=== PATIENT | male | born 1960 | race Caucasian/White ===

== ENCOUNTER 2016-12-16 03:23 | Emergency (ER) | payer MEDICARE, MEDICAID ==
[2016-12-16] MEDS ORDERED: FENTANYL CITRATE INJ/PF 100 MCG/2 ML AMPUL ONE ×2 (03:33→10:38)
[2016-12-16] MEDS ORDERED: FENTANYL CITRATE INJ/PF 100 MCG/2 ML AMPUL IV ONE ×3 (03:44→10:35)
[2016-12-16] MEDS ORDERED: NORMAL SALINE 1000 ML 1,000 ML IV ONE ×2 (03:45→05:39)
[2016-12-16] MEDS ORDERED: SILVER SULFADIAZINE 1% CREAM 400 GM TP PRN (03:46)
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
[2016-12-16] MEDS ORDERED: HYDROCODONE/ACETAMINOPHEN 5-325 MG 6 TAB/DSPK PO PRN (03:52)
[2016-12-16] MEDS ORDERED: HYDROMORPHONE HCL INJ/PF 2 MG/ML AMPULE IV ONE (05:43)
[2016-12-16] MEDS ORDERED: OXYCODONE-ACETAMINOPHEN 5-325 MG TABLET PO ONE (08:47)
--- NOTE | 2016-12-16 10:38 | ER Document Report ---
Doctor's Note Notes: 12/16/16 10:36 Patient seen and evaluated at the bedside at 0 730 request from nurse for additional pain medication patient is awake and alert vital signs are stable regular rhythm and additional fentanyl and Percocet. He said it made him a little nauseated reassessed him at 1035 helicopter is arriving stable vital signs mild amount of discomfort wrote him for an additional 100 mics of fentanyl. At this point anxiety and palate form he is stable for transfer
[2016-12-16 11:16] VITALS: BP 142/101
== END 2016-12-16 11:16 | disposition short-term general hospital (02) ==
LOC: ER 03:23
DX: T20.25XA Burn of second degree of scalp [any part], initial encounter (principal); T21.04XA Burn of unspecified degree of lower back, initial encounter; T22.012A Burn of unspecified degree of left forearm, initial encounter; T23.062A Burn of unspecified degree of back of left hand, initial encounter; X08.8XXA Exposure to other specified smoke, fire and flames, initial encounter; Y92.009 Unspecified place in unspecified non-institutional (private) residence as the place of occurrence of the external cause
CPT/HCPCS: 96376; 99285; 96374; 96375; J3010; A9270; J1170; J3490

== ENCOUNTER 2017-01-04 20:50 | Emergency (ER) | payer MEDICARE, MEDICAID ==
[2017-01-04] MEDS ORDERED: CEPHALEXIN 500 MG CAPSULE PO ONE (21:31)
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
[2017-01-04 21:49] VITALS: BP 161/98
== END 2017-01-04 21:55 | disposition home or self-care (01) ==
LOC: ER 20:50
DX: T22.00XD Burn of unspecified degree of shoulder and upper limb, except wrist and hand, unspecified site, subsequent encounter (principal); T20.00XD Burn of unspecified degree of head, face, and neck, unspecified site, subsequent encounter; L98.9 Disorder of the skin and subcutaneous tissue, unspecified; X08.8XXD Exposure to other specified smoke, fire and flames, subsequent encounter
CPT/HCPCS: 99283; A9270

== ENCOUNTER 2017-02-14 06:54 | Emergency (ER) | payer MEDICARE, MEDICAID ==
[2017-02-14 07:25] VITALS: BP 152/93
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
== END 2017-02-14 07:51 | disposition home or self-care (01) ==
LOC: ER 06:54
DX: L02.91 Cutaneous abscess, unspecified (principal); E11.9 Type 2 diabetes mellitus without complications; I10 Essential (primary) hypertension; G89.29 Other chronic pain; F17.200 Nicotine dependence, unspecified, uncomplicated; Z85.828 Personal history of other malignant neoplasm of skin; Z79.891 Long term (current) use of opiate analgesic
CPT/HCPCS: 99282

== ENCOUNTER 2017-04-28 11:36 | Inpatient (IN) | payer MEDICARE, MEDICAID ==
[2017-04-28] MEDS ORDERED: NORMAL SALINE 1000 ML 1,000 ML IV PRN (12:30)
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
--- NOTE | 2017-04-28 13:28 | RADIOLOGY REPORT (SQ) ---
EXAM DESCRIPTION: KNEE RIGHT 4 VIEWS COMPLETED DATE/TIME: 04/28/2017 1:08 pm REASON FOR STUDY: cellulitis going down leg COMPARISON: None. NUMBER OF VIEWS: Four views. TECHNIQUE: AP, lateral, and both oblique radiographic images acquired of the right knee. LIMITATIONS: None. FINDINGS: MINERALIZATION: Normal. BONES: No acute fracture or dislocation. No worrisome bone lesions. JOINT: No effusion. Mild patellofemoral, medial, and lateral compartment joint space narrowing. SOFT TISSUES: No soft tissue swelling. No radio-opaque foreign body. OTHER: No other significant finding. IMPRESSION: No acute fracture or malalignment. TECHNICAL DOCUMENTATION: JOB ID: [id number] [employer]- All Rights Reserved
[2017-04-28] MEDS ORDERED: CLINDAMYCIN 600 MG/D5W RTU 600 MG/50 ML RTUPB IV ONE (13:31)
[2017-04-28 14:21] LABS: ANION GAP 11 (5-19); BLOOD UREA NITROGEN 41 mg/dL (7-20); CALCIUM 9.5 mg/dL (8.4-10.2); CARBON DIOXIDE 27 mmol/L (22-30); CHLORIDE 102 mmol/L (98-107); CREATININE RESULT 0.97 mg/dL (0.52-1.25); GLUCOSE 291 mg/dL (75-110); POTASSIUM 4.9 mmol/L (3.6-5.0); SODIUM 140.1 mmol/L (137-145)
[2017-04-28 14:22] LABS: HEMOGLOBIN 15.3 g/dL (13.5-17.0); HGB HCT DIFFERENCE 2.9; MEAN CORPUSCULAR HEMOGLOBIN 29.7 pg (27.0-33.4); MEAN CORPUSCULAR HGB CONC 35.6 g/dL (32.0-36.0); MEAN CORPUSCULAR VOLUME 84 fl (80-97); RED BLOOD COUNT 5.16 10^6/uL (4.35-5.55); WHITE BLOOD COUNT 10.8 10^3/uL (4.0-10.5)
[2017-04-28] MEDS ORDERED: DEXTROSE 40% GEL 15 GM TUBE PO PRN ×5 (14:26→17:28)
[2017-04-28] MEDS ORDERED: DEXTROSE 50%-WATER 25 GM/50 ML DISP.SYRIN IV PRN ×4 (14:26→14:29)
[2017-04-28] MEDS ORDERED: GLUCAGON,HUMAN RECOMB 1 MG INJ SUBCUT PRN (14:26)
[2017-04-28] MEDS ORDERED: INSULIN REG, HUMAN 100 UNIT/ML 3 ML VIAL (PYX) SUBCUT PRN (14:29)
[2017-04-28] MEDS ORDERED: GLUCAGON,HUMAN RECOMB 1 MG INJ IM PRN ×2 (14:29→17:28)
[2017-04-28 14:40] LABS: BASOPHILS % (MANUAL) 2 % (0-2); EOSINOPHILS % (MANUAL) 4 % (0-6); LYMPHOCYTES % (MANUAL) 18 % (13-45); TOTAL CELLS COUNTED 100
[2017-04-28 14:41] LABS: RBC MORPHOLOGY COMMENT NORMO-CYTIC/CHROMIC
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
[2017-04-28] MEDS ORDERED: DEXTROSE 40% GEL 15 GM TUBE X 2 PO PRN (17:28)
[2017-04-28] MEDS ORDERED: DEXTROSE 50%-WATER SYRINGE 25 GM/50 ML DOSE IV PRN (17:28)
[2017-04-28] MEDS ORDERED: DEXTROSE 50%-WATER SYRINGE 12.5 GM/25 ML DOSE IV PRN (17:28)
[2017-04-28] MEDS: INSULIN REG, HUMAN 100 UNIT/ML 3 ML VIAL (PYX) SUBCUT PRN (17:36)
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
[2017-04-28 20:32] LABS: URINE BARBITURATES SCREEN NEGATIVE; URINE METHADONE SCREEN NEGATIVE; URINE OPIATES LOW NEGATIVE; URINE PHENCYCLIDINE SCREEN NEGATIVE
[2017-04-28] MEDS: FAMOTIDINE 20 MG TABLET PO SCH (21:29)
[2017-04-28] MEDS: GABAPENTIN 400 MG CAPSULE PO SCH (21:29)
[2017-04-28] MEDS: CLINDAMYCIN 600 MG/D5W RTU 600 MG/50 ML RTUPB IV SCH (21:30)
[2017-04-28] MEDS: HYDROCODONE/ACETAMINOPHEN 10-325 MG TABLET PO PRN (21:39)
[2017-04-29] MEDS: GABAPENTIN 400 MG CAPSULE PO SCH ×3 (05:37→22:22)
[2017-04-29] MEDS: CLINDAMYCIN 600 MG/D5W RTU 600 MG/50 ML RTUPB IV SCH ×3 (05:38→22:22)
[2017-04-29 05:52] LABS: ABSOLUTE BASOPHILS # (AUTO) 0.1 10^3/uL (0.0-0.2); ABSOLUTE EOSINOPHILS # (AUTO) 0.4 10^3/uL (0.0-0.6); ABSOLUTE LYMPHOCYTES (AUTO) 2.1 10^3/uL (0.5-4.7); ABSOLUTE MONOCYTES (AUTO) 0.4 10^3/uL (0.1-1.4); ABSOLUTE NEUT (AUTO) 2.6 10^3/uL (1.7-8.2); BASOPHILS % (AUTO) 1.1 % (0-2); EOSINOPHILS % (AUTO) 6.8 % (0-6); HEMATOCRIT 38.5 % (37.9-51.0); HEMOGLOBIN 13.5 g/dL (13.5-17.0); LYMPHOCYTES % (AUTO) 37.2 % (13-45); MEAN CORPUSCULAR HEMOGLOBIN 29.3 pg (27.0-33.4); MEAN CORPUSCULAR HGB CONC 35.2 g/dL (32.0-36.0); MEAN CORPUSCULAR VOLUME 83 fl (80-97); MONOCYTES % (AUTO) 7.9 % (3-13); RED BLOOD COUNT 4.63 10^6/uL (4.35-5.55); RED CELL DISTRIBUTION WIDTH 14.2 % (11.5-14.0); WHITE BLOOD COUNT 5.6 10^3/uL (4.0-10.5)
[2017-04-29 06:21] LABS: ANION GAP 9 (5-19); BLOOD UREA NITROGEN 26 mg/dL (7-20); CALCIUM 8.7 mg/dL (8.4-10.2); CARBON DIOXIDE 25 mmol/L (22-30); CHLORIDE 103 mmol/L (98-107); CREATININE RESULT 0.78 mg/dL (0.52-1.25); GLUCOSE 260 mg/dL (75-110); POTASSIUM 4.7 mmol/L (3.6-5.0); SODIUM 136.7 mmol/L (137-145)
[2017-04-29] MEDS: INSULIN REG, HUMAN 100 UNIT/ML 3 ML VIAL (PYX) SUBCUT PRN ×2 (08:11→17:00)
[2017-04-29] MEDS ORDERED: NORMAL SALINE 1000 ML 1,000 ML IV PRN (08:58)
[2017-04-29] MEDS: FAMOTIDINE 20 MG TABLET PO SCH ×2 (09:46→22:23)
[2017-04-29] MEDS ORDERED: GLIPIZIDE 5 MG TABLET PO ONE (13:00)
--- NOTE | 2017-04-29 15:35 | PDOC PROGRESS REPORT ---
Subjective Progress Note for:: 04/29/17 Subjective:: Patient was admitted with right knee cellulitis which is improved significantly. He did have a tear in his scan makes me think that he had an injury /insult to that area. Of course patient denies. He has not been very honest regarding his compliance with medications. Also he tested positive for cocaine. States about 3 weeks ago took some cocaine put in water and swallowed. Physical Exam Vital Signs: Temp Pulse Resp BP Pulse Ox 97.3 F 71 17 144/89 H 100 04/29/17 11:49 04/29/17 11:49 04/29/17 11:49 04/29/17 11:49 04/29/17 11:49 Intake & Output 04/28/17 04/29/17 04/30/17 07:59 06:59 06:59 Intake Total 1060 Balance 1060 Weight General appearance: PRESENT: no acute distress, well-developed, well-nourished Head exam: PRESENT: atraumatic, normocephalic Eye exam: PRESENT: conjunctiva pink, EOMI, PERRLA. ABSENT: scleral icterus Ear exam: PRESENT: normal external ear exam Mouth exam: PRESENT: moist, tongue midline Neck exam: ABSENT: carotid bruit, JVD, lymphadenopathy, thyromegaly Respiratory exam: PRESENT: clear to auscultation sb. ABSENT: rales, rhonchi, wheezes Cardiovascular exam: PRESENT: RRR. ABSENT: diastolic murmur, rubs, systolic murmur Pulses: PRESENT: normal dorsalis pedis pul Vascular exam: PRESENT: normal capillary refill GI/Abdominal exam: PRESENT: normal bowel sounds, soft. ABSENT: distended, guarding, mass, organolmegaly, rebound, tenderness Rectal exam: PRESENT: deferred Extremities exam: PRESENT: full ROM. ABSENT: calf tenderness, clubbing, pedal edema Neurological exam: PRESENT: alert, awake, oriented to person, oriented to place , oriented to time, oriented to situation, CN II-XII grossly intact. ABSENT: motor sensory deficit Psychiatric exam: PRESENT: appropriate affect, normal mood. ABSENT: homicidal ideation, suicidal ideation Skin exam: PRESENT: dry, intact, warm. ABSENT: cyanosis, rash Results Laboratory Results: 04/29/17 04:43 04/29/17 04:43 04/29/17 04/29/17 04:43 04:43 WBC 5.6 RBC 4.63 Hgb 13.5 Hct 38.5 MCV 83 MCH 29.3 MCHC 35.2 RDW 14.2 H Plt Count 156 Seg Neutrophils % 47.0 Lymphocytes % 37.2 Monocytes % 7.9 Eosinophils % 6.8 H Basophils % 1.1 Absolute Neutrophils 2.6 Absolute Lymphocytes 2.1 Absolute Monocytes 0.4 Absolute Eosinophils 0.4 Absolute Basophils 0.1 Sodium 136.7 L Potassium 4.7 Chloride 103 Carbon Dioxide 25 Anion Gap 9 BUN 26 H Creatinine 0.78 Est GFR ( Amer) > 60 Est GFR (Non-Af Amer) > 60 Glucose 260 H Calcium 8.7 Impressions: Knee X-Ray 04/28/17 12:29 IMPRESSION: No acute fracture or malalignment. Assessment & Plan - Diagnosis (1) Cellulitis of right knee Is this a current diagnosis for this admission?: Yes Plan: Patient will be admitted for IV antibiotics. Will start clindamycin per Dr. Coleman's recommendation. Consult him for possible I&D of right knee. Blood cultures were obtained in the ER continue to monitor and follow. Suspect patient will not need surgery. Continue with IV antibiotics for now. (2) Benign essential HTN Is this a current diagnosis for this admission?: Yes Plan: Monitor patient's blood pressure. Will continue lisinopril and HCTZ. Will also continue his amlodipine. Per pharmacy patient has not been compliant in getting prescription filled for some time but he told me he been taking it every day. (3) Diabetes 1.5, managed as type 2 Is this a current diagnosis for this admission?: Yes Plan: We will hold metformin at this time. We will start Accu-Cheks before meals at bedtime with sliding scale insulin continue to monitor blood sugars. Check Hemoglobin A1c was 11.1. So I doubt patient was taking any of his oral hypoglycemics. Continue sliding scale coverage here. I have added glipizide and restarted his Metformin. (4) Illicit drug use Is this a current diagnosis for this admission?: Yes Plan: Patient test positive for cocaine. Patient denies using it daily. States he uses it for his pain control. I have encourage cessation and abstinence of illicit drug use.
[2017-04-29] MEDS: HYDROCODONE/ACETAMINOPHEN 10-325 MG TABLET PO PRN ×2 (16:15→22:23)
[2017-04-29] MEDS: GLIPIZIDE 5 MG TABLET PO SCH (16:18)
[2017-04-29] MEDS ORDERED: AMLODIPINE BESYLATE 10 MG TABLET PO ONE (16:30)
[2017-04-29] MEDS: METFORMIN HCL 850 MG TABLET PO SCH (17:00)
--- NOTE | 2017-04-29 20:07 | PDOC PROGRESS REPORT ---
Subjective Progress Note for:: 04/29/17 Subjective:: #1 is less pains along the right knee Physical Exam Vital Signs: Temp Pulse Resp BP Pulse Ox 97.4 F 75 18 151/97 H 98 04/29/17 19:59 04/29/17 19:59 04/29/17 19:59 04/29/17 19:59 04/29/17 19:59 Intake & Output 04/28/17 04/29/17 04/30/17 07:59 06:59 06:59 Intake Total 1160 Balance 1160 Weight Exam: #1 there is erythema along the right lower leg has subsided. There is just a small area of redness and mild swelling on the mid right knee on top of the patella I do not see any accumulation of pus at this time and therefore can hold off with i&d at this time. Results Laboratory Results: 04/29/17 04:43 04/29/17 04:43 04/29/17 04/29/17 04:43 04:43 WBC 5.6 RBC 4.63 Hgb 13.5 Hct 38.5 MCV 83 MCH 29.3 MCHC 35.2 RDW 14.2 H Plt Count 156 Seg Neutrophils % 47.0 Lymphocytes % 37.2 Monocytes % 7.9 Eosinophils % 6.8 H Basophils % 1.1 Absolute Neutrophils 2.6 Absolute Lymphocytes 2.1 Absolute Monocytes 0.4 Absolute Eosinophils 0.4 Absolute Basophils 0.1 Sodium 136.7 L Potassium 4.7 Chloride 103 Carbon Dioxide 25 Anion Gap 9 BUN 26 H Creatinine 0.78 Est GFR ( Amer) > 60 Est GFR (Non-Af Amer) > 60 Glucose 260 H Calcium 8.7 Impressions: Knee X-Ray 04/28/17 12:29 IMPRESSION: No acute fracture or malalignment. Assessment & Plan - Time Time Spent with patient: 15-24 minutes - Plan Summary Plan Summary: #1 can hold off with the incision and drainage of right knee abscess since there is no apparent abscess collection at this time. 2. Continue with IV antibiotic therapy. 3. He can be followed up in the surgical clinic in about a week to make sure that thE CELLULITIS continues to improve.
[2017-04-30 04:41] LABS: ABSOLUTE BASOPHILS # (AUTO) 0.1 10^3/uL (0.0-0.2); ABSOLUTE EOSINOPHILS # (AUTO) 0.4 10^3/uL (0.0-0.6); ABSOLUTE LYMPHOCYTES (AUTO) 2.3 10^3/uL (0.5-4.7); ABSOLUTE MONOCYTES (AUTO) 0.5 10^3/uL (0.1-1.4); ABSOLUTE NEUT (AUTO) 2.4 10^3/uL (1.7-8.2); BASOPHILS % (AUTO) 1.2 % (0-2); EOSINOPHILS % (AUTO) 6.7 % (0-6); HEMATOCRIT 40.5 % (37.9-51.0); HEMOGLOBIN 14.7 g/dL (13.5-17.0); HGB HCT DIFFERENCE 3.6; LYMPHOCYTES % (AUTO) 40.7 % (13-45); MEAN CORPUSCULAR HEMOGLOBIN 29.8 pg (27.0-33.4); MEAN CORPUSCULAR HGB CONC 36.4 g/dL (32.0-36.0); MEAN CORPUSCULAR VOLUME 82 fl (80-97); MONOCYTES % (AUTO) 8.6 % (3-13); RED BLOOD COUNT 4.95 10^6/uL (4.35-5.55); RED CELL DISTRIBUTION WIDTH 14.1 % (11.5-14.0); SEGMENTED NEUTROPHILS % (AUTO) 42.8 % (42-78); WHITE BLOOD COUNT 5.6 10^3/uL (4.0-10.5)
[2017-04-30 04:59] LABS: ANION GAP 11 (5-19); BLOOD UREA NITROGEN 19 mg/dL (7-20); CARBON DIOXIDE 22 mmol/L (22-30); CHLORIDE 104 mmol/L (98-107); CREATININE RESULT 0.72 mg/dL (0.52-1.25); GLUCOSE 191 mg/dL (75-110); POTASSIUM 4.8 mmol/L (3.6-5.0); SODIUM 136.6 mmol/L (137-145)
[2017-04-30] MEDS: CLINDAMYCIN 600 MG/D5W RTU 600 MG/50 ML RTUPB IV SCH ×3 (06:30→21:20)
[2017-04-30] MEDS: HYDROCODONE/ACETAMINOPHEN 10-325 MG TABLET PO PRN ×3 (06:30→21:20)
[2017-04-30] MEDS: GABAPENTIN 400 MG CAPSULE PO SCH ×3 (06:30→21:20)
[2017-04-30] MEDS ORDERED: LIDOCAINE 1% INJ-PF (10 MG/ML) 30 ML SDV ONE (08:10)
--- NOTE | 2017-04-30 08:14 | Physician Advisory Note ---
Physician Advisor ProgressNote .: [place] [facility], I have reviewed the medical record for this patient. Physician Advisor Statement: Medical necessity: Attending, please document the clinical reasons this patient was not able to go home with po abx on 04/29. (Payer will say "providers documented he was much better on 04/29, so why should we pay for 2nd night in hospital?") - Ex: "I WAS CONCERNED about ____", or "cellulitis not yet sufficiently improved for safe d/c", or .... Status: Cellulitis, not yet failed outpt tx attempts at time of arrival, appropriate initially for Obs status. Medicare pt - if attending documents attending concerns/clinical reasons pt needed continued hospitalization for IV abx on 04/29 PM (2nd midnight), may then become appropriate to change to Inpatient status, even if pt can subsequently be d/c'd home today. - If, however, there really wasn't a clinical need to keep pt the 2nd MN, attending really wasn't that concerned, but it was a social or other non- clinical reason for 2nd MN, then should not order Inpatient status. Thanks! CK
[2017-04-30] MEDS: METFORMIN HCL 850 MG TABLET PO SCH ×2 (08:22→16:07)
[2017-04-30] MEDS: GLIPIZIDE 5 MG TABLET PO SCH ×2 (08:38→16:07)
[2017-04-30] MEDS: HYDROCHLOROTHIAZIDE 25 MG TABLET PO SCH (09:07)
[2017-04-30] MEDS: FAMOTIDINE 20 MG TABLET PO SCH ×2 (09:08→21:20)
[2017-04-30] MEDS: AMLODIPINE BESYLATE 10 MG TABLET PO SCH (09:08)
[2017-04-30] MEDS: LISINOPRIL 10 MG TABLET PO SCH (09:08)
--- NOTE | 2017-04-30 09:46 | Operative Report ---
Operative Report DATE OF SURGERY: 04/30/17 PREOPERATIVE DIAGNOSIS: Abscess right knee POSTOPERATIVE DIAGNOSIS: Same; suspicious for MRSA OPERATION: Excisional debridement of skin subcutaneous tissue, and breakup of loculations right knee SURGEON: CAROLIN BRUCE ANESTHESIA: Local TISSUE REMOVED OR ALTERED: Skin and subcutaneous tissue COMPLICATIONS: None ESTIMATED BLOOD LOSS: Scant INTRAOPERATIVE FINDINGS: See below PROCEDURE: Patient's right lower extremity was assessed. He had persisting focal cellulitic changes with focal area of discolored skin in the center of the skin overlying the patella. Surgical plan surgical timeout conducted. Recent right knee was prepped and draped in sterile fashion. Surgical plan surgical timeout were conducted. The skin was anesthetized with 1% lidocaine plain lidocaine. An elliptical incision was made with a #10 blade moving a by 2 cm ellipse of skin and subcutaneous tissue. There was no saige pus but loculated would be a cutaneous tissue which was broken up with hemostats. There was no further tracking of the abscess. The wound was irrigated with peroxide saline peroxide again. Wound was packed with iodoform packing. Recommendations: 1. Continue intravenous antibiotics 2. Follow-up on intraoperative wound culture sent today 3. Moves packing and start dressing changes tomorrow. Blood cells dictating on Frank brizuela
[2017-04-30] MEDS: INSULIN REG, HUMAN 100 UNIT/ML 3 ML VIAL (PYX) SUBCUT PRN ×3 (09:56→21:20)
[2017-04-30] MEDS ORDERED: (PENDING PHARMACY ID) (Lisinopril/Hydrochlorothiazide [Lisinopril-Hctz 20-25 Mg Tab] 1 TAB PO SCH (10:00)
[2017-04-30 13:45] LABS: URINE BARBITURATES SCREEN NEGATIVE; URINE METHADONE SCREEN NEGATIVE; URINE PHENCYCLIDINE SCREEN NEGATIVE
[2017-04-30 14:00] LABS: URINE OPIATES LOW UNCONFIRMED POSITIVE
--- NOTE | 2017-04-30 15:47 | PDOC PROGRESS REPORT ---
Subjective Progress Note for:: 04/30/17 Subjective:: Patient was admitted with right knee cellulitis which is improved significantly. He did have a tear in his scan makes me think that he had an injury /insult to that area. Of course patient denies. He has not been very honest regarding his compliance with medications. Also he tested positive for cocaine. States about 3 weeks ago took some cocaine put in water and swallowed. Seen in bed getting a bedside debridement. Physical Exam Vital Signs: Temp Pulse Resp BP Pulse Ox 98.0 F 78 18 114/80 97 04/30/17 11:03 04/30/17 11:03 04/30/17 11:03 04/30/17 11:03 04/30/17 11:03 General appearance: PRESENT: no acute distress, well-developed, well-nourished Head exam: PRESENT: atraumatic, normocephalic Eye exam: PRESENT: conjunctiva pink, EOMI, PERRLA. ABSENT: scleral icterus Ear exam: PRESENT: normal external ear exam Mouth exam: PRESENT: moist, tongue midline Neck exam: ABSENT: carotid bruit, JVD, lymphadenopathy, thyromegaly Respiratory exam: PRESENT: clear to auscultation sb. ABSENT: rales, rhonchi, wheezes Cardiovascular exam: PRESENT: RRR. ABSENT: diastolic murmur, rubs, systolic murmur Pulses: PRESENT: normal dorsalis pedis pul Vascular exam: PRESENT: normal capillary refill GI/Abdominal exam: PRESENT: normal bowel sounds, soft. ABSENT: distended, guarding, mass, organolmegaly, rebound, tenderness Rectal exam: PRESENT: deferred Extremities exam: PRESENT: full ROM. ABSENT: calf tenderness, clubbing, pedal edema Neurological exam: PRESENT: alert, awake, oriented to person, oriented to place , oriented to time, oriented to situation, CN II-XII grossly intact. ABSENT: motor sensory deficit Psychiatric exam: PRESENT: appropriate affect, normal mood. ABSENT: homicidal ideation, suicidal ideation Skin exam: PRESENT: dry, intact, warm. ABSENT: cyanosis, rash Results Impressions: Knee X-Ray 04/28/17 12:29 IMPRESSION: No acute fracture or malalignment. Assessment & Plan - Diagnosis (1) Cellulitis of right knee Plan: Patient will be admitted for IV antibiotics. Will start clindamycin per Dr. Coleman's recommendation. Consult him for possible I&D of right knee. Blood cultures were obtained in the ER continue to monitor and follow. Suspect patient will not need surgery. Continue with IV antibiotics for now. Patient got I & D at bedside with Dr. Garrison. Continue clindamycin (2) Benign essential HTN Is this a current diagnosis for this admission?: Yes Plan: Monitor patient's blood pressure. Will continue lisinopril and HCTZ. Will also continue his amlodipine. Per pharmacy patient has not been compliant in getting prescription filled for some time but he told me he been taking it every day. (3) Diabetes 1.5, managed as type 2 Is this a current diagnosis for this admission?: Yes Plan: We will hold metformin at this time. We will start Accu-Cheks before meals at bedtime with sliding scale insulin continue to monitor blood sugars. Check Hemoglobin A1c was 11.1. So I doubt patient was taking any of his oral hypoglycemics. Continue sliding scale coverage here. I have added glipizide and restarted his Metformin. (4) Illicit drug use Is this a current diagnosis for this admission?: Yes Plan: Patient test positive for cocaine. Patient denies using it daily. States he uses it for his pain control. I have encourage cessation and abstinence of illicit drug use.
[2017-05-01] MEDS: HYDROCODONE/ACETAMINOPHEN 10-325 MG TABLET PO PRN ×3 (06:18→21:31)
[2017-05-01] MEDS: GABAPENTIN 400 MG CAPSULE PO SCH ×3 (06:18→21:31)
[2017-05-01] MEDS: CLINDAMYCIN 600 MG/D5W RTU 600 MG/50 ML RTUPB IV SCH ×3 (06:18→21:31)
[2017-05-01] MEDS: INSULIN REG, HUMAN 100 UNIT/ML 3 ML VIAL (PYX) SUBCUT PRN ×2 (09:42→13:06)
[2017-05-01] MEDS: LISINOPRIL 10 MG TABLET PO SCH (09:43)
[2017-05-01] MEDS: METFORMIN HCL 850 MG TABLET PO SCH ×2 (09:44→16:54)
[2017-05-01] MEDS: AMLODIPINE BESYLATE 10 MG TABLET PO SCH (09:44)
[2017-05-01] MEDS: GLIPIZIDE 5 MG TABLET PO SCH ×2 (09:45→16:54)
[2017-05-01] MEDS: FAMOTIDINE 20 MG TABLET PO SCH ×2 (09:45→21:31)
[2017-05-01] MEDS: HYDROCHLOROTHIAZIDE 25 MG TABLET PO SCH (09:45)
--- NOTE | 2017-05-01 11:59 | PDOC PROGRESS REPORT ---
Subjective Progress Note for:: 05/01/17 Subjective:: Operative day 1 status post incision and drainage of right knee abscess Physical Exam Vital Signs: Temp Pulse Resp BP Pulse Ox 97.7 F 73 17 133/84 H 99 05/01/17 09:37 05/01/17 09:37 05/01/17 09:37 05/01/17 09:37 05/01/17 09:37 Intake & Output 04/30/17 05/01/17 05/02/17 06:59 06:59 06:59 Intake Total 3280 Balance 3280 Weight 105.7 kg Exam: Awake, alert, oriented Lungs: Clear Cardiovascular: Regular rate Abdomen: Soft, nontender Extremities: Right knee wound clean with some surrounding cellulitis and induration. No purulent drainage. Results Laboratory Results: Gram stain positive for gram-positive cocci culture pending Impressions: Knee X-Ray 04/28/17 12:29 IMPRESSION: No acute fracture or malalignment. Assessment & Plan - Diagnosis (1) Abscess of right knee Is this a current diagnosis for this admission?: Yes Plan: Start normal saline wet-to-dry dressing changes 3 times daily. Continue antibiotics. Anticipate discharge tomorrow. Awaiting microbiology results. - Time Time Spent with patient: 15-24 minutes
--- NOTE | 2017-05-01 15:47 | PDOC PROGRESS REPORT ---
Subjective Progress Note for:: 05/01/17 Subjective:: Pt is seen resting in bed comfortably. He is Post Op day 1 s/p I&D of abscess to his right knee. Pt reports that his knee pain and edema have improved significantly. He denies fever, chills, body aches. Overall, he reports that he is feeling much better and is very satisfied by his care. He is pleased to have been told by the surgeon that he will likely be ready for d/c to home in the morning. He has no health questions or concerns today. Physical Exam Vital Signs: Temp Pulse Resp BP Pulse Ox 98.0 F 69 17 122/68 99 05/01/17 12:23 05/01/17 12:23 05/01/17 12:23 05/01/17 12:23 05/01/17 12:23 Intake & Output 04/30/17 05/01/17 05/02/17 06:59 06:59 06:59 Intake Total 3280 Balance 3280 Weight 105.7 kg General appearance: PRESENT: no acute distress, well-developed, well-nourished, other - overweight Head exam: PRESENT: atraumatic, normocephalic Eye exam: PRESENT: conjunctiva pink, EOMI, PERRLA. ABSENT: scleral icterus Ear exam: PRESENT: normal external ear exam Mouth exam: PRESENT: moist, tongue midline Neck exam: ABSENT: carotid bruit, JVD, lymphadenopathy, thyromegaly Respiratory exam: PRESENT: clear to auscultation sb, unlabored. ABSENT: rales , rhonchi, tachypnea, wheezes Cardiovascular exam: PRESENT: RRR. ABSENT: diastolic murmur, rubs, systolic murmur Pulses: PRESENT: normal dorsalis pedis pul Vascular exam: PRESENT: normal capillary refill GI/Abdominal exam: PRESENT: normal bowel sounds, soft. ABSENT: distended, guarding, mass, organolmegaly, rebound, tenderness Rectal exam: PRESENT: deferred Extremities exam: PRESENT: full ROM. ABSENT: calf tenderness, clubbing, pedal edema Neurological exam: PRESENT: alert, awake, oriented to person, oriented to place , oriented to time, oriented to situation, CN II-XII grossly intact. ABSENT: motor sensory deficit Psychiatric exam: PRESENT: appropriate affect, normal mood. ABSENT: homicidal ideation, suicidal ideation Skin exam: PRESENT: dry, warm. ABSENT: cyanosis, intact - s/p I&D of Rt knee; dressing in place. + serous drainage to gauze; wound not directly visualized., rash Results Impressions: Knee X-Ray 04/28/17 12:29 IMPRESSION: No acute fracture or malalignment. Assessment & Plan - Diagnosis (1) Abscess of right knee Is this a current diagnosis for this admission?: Yes Plan: Post Op day 1 s/p I&D per Surgery. Blood cultures: NGTD at 72 hours Wound Culture: Gram positive cocci 1- Appreciate Surgery consultation and recommendations 2- Continue clindamycin 3- prn [place] for pain (2) Cellulitis of right knee Is this a current diagnosis for this admission?: Yes Plan: Improving. Plan as above. (3) Benign essential HTN Is this a current diagnosis for this admission?: Yes Plan: BP improved with resumption of home medications; Lisinopril/HCTZ and Amlodipine. (4) Diabetes 1.5, managed as type 2 Is this a current diagnosis for this admission?: Yes Plan: A1c 11.4% 1- Metformin 850 mg BID 2- Glipizide 5 mg BID 3- Accuchecks ACHS with SSI for coverage 4- Consistent carb diet 5- Will ask nutrition educator to meet with patient (5) Illicit drug use Is this a current diagnosis for this admission?: Yes - Time Time Spent with patient: 15-24 minutes Anticipated discharge: Home Within: within 24 hours - Inpatient Certification Based on my medical assessment, after consideration of the patient's comorbidities, presenting symptoms, or acuity I expect that the services needed warrant INPATIENT care.: Yes I certify that my determination is in accordance with my understanding of Medicare's requirements for reasonable and necessary INPATIENT services [42 CFR 412.3e].: Yes Medical Necessity: Need for IV Antibiotics
[2017-05-02] MEDS: GABAPENTIN 400 MG CAPSULE PO SCH (06:30)
[2017-05-02] MEDS: HYDROCODONE/ACETAMINOPHEN 10-325 MG TABLET PO PRN (06:30)
[2017-05-02] MEDS: CLINDAMYCIN 600 MG/D5W RTU 600 MG/50 ML RTUPB IV SCH (06:30)
[2017-05-02] MEDS: METFORMIN HCL 850 MG TABLET PO SCH (07:40)
[2017-05-02] MEDS: GLIPIZIDE 5 MG TABLET PO SCH (07:41)
--- NOTE | 2017-05-02 09:36 | PDOC PROGRESS REPORT ---
Subjective Progress Note for:: 05/02/17 Subjective:: Afebrile overnight. No complaints Physical Exam Vital Signs: Temp Pulse Resp BP Pulse Ox 97.4 F 69 16 113/75 100 05/02/17 08:14 05/02/17 08:14 05/02/17 08:14 05/02/17 08:14 05/02/17 08:14 Intake & Output 05/01/17 05/02/17 05/03/17 06:59 06:59 06:59 Intake Total 3280 2585 Balance 3280 2585 Weight 105.7 kg 107.5 kg Exam: Awake, alert, oriented Lungs: Clear Cardiovascular: Regular rate Abdomen: Soft, nontender Right knee with less cellulitis. Wound with clean granulation base Results Impressions: Knee X-Ray 04/28/17 12:29 IMPRESSION: No acute fracture or malalignment. Assessment & Plan - Diagnosis (1) Abscess of right knee Is this a current diagnosis for this admission?: Yes Plan: Status post I&D of right knee. Cellulitis was resolving. He can be discharged with p.o. antibiotics at the discretion of the hospitalist medicine service. He can follow-up in the wound clinic in 1 week. Continue local wound care.
[2017-05-02] MEDS: HYDROCHLOROTHIAZIDE 25 MG TABLET PO SCH (10:46)
[2017-05-02] MEDS: AMLODIPINE BESYLATE 10 MG TABLET PO SCH (10:46)
[2017-05-02] MEDS: LISINOPRIL 10 MG TABLET PO SCH (10:46)
[2017-05-02] MEDS: FAMOTIDINE 20 MG TABLET PO SCH (10:47)
[2017-05-02 13:33] VITALS: BP 108/67
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
== END 2017-05-02 13:56 | disposition home or self-care (01) | DRG 572 ==
LOC: ER 11:36 → EH 13:44 → UNDOADMIN 13:44 → 5 14:21 → INTOOBSV 14:21 → EH 14:55 → 5 14:55 → OBSVTOIN 04-30 11:45
PROVIDERS: ADMIT Pediatrics; ATTEND Pediatrics
PROC: 0JBN0ZZ Excision of Right Lower Leg Subcutaneous Tissue and Fascia, Open Approach (ICD-10-PCS; principal; 2017-04-30)
DX: L03.115 Cellulitis of right lower limb (principal); E11.9 Type 2 diabetes mellitus without complications; S80.261A Insect bite (nonvenomous), right knee, initial encounter; W57.XXXA Bitten or stung by nonvenomous insect and other nonvenomous arthropods, initial encounter; I10 Essential (primary) hypertension; B95.61 Methicillin susceptible Staphylococcus aureus infection as the cause of diseases classified elsewhere; F14.90 Cocaine use, unspecified, uncomplicated; F17.210 Nicotine dependence, cigarettes, uncomplicated; Z79.84 Long term (current) use of oral hypoglycemic drugs; T22.30XD Burn of third degree of shoulder and upper limb, except wrist and hand, unspecified site, subsequent encounter; T20.35XD Burn of third degree of scalp [any part], subsequent encounter; Z85.828 Personal history of other malignant neoplasm of skin; X08.8XXD Exposure to other specified smoke, fire and flames, subsequent encounter; Z79.899 Other long term (current) drug therapy; Z91.19 Patient's noncompliance with other medical treatment and regimen; S80.211A Abrasion, right knee, initial encounter; X58.XXXA Exposure to other specified factors, initial encounter
CPT/HCPCS: 36415; 80048; 80307; 82962; 83036; 85025; 87040; 87070; 87075; 87077; 87186; 87205; 99284; A6266; G0378; J1815; J3490; J7030

== ENCOUNTER → 2018-01-07 | Outpatient (CLI) | payer MEDICARE, MEDICAID | LOC: OD 17:49 | PROVIDERS: ATTEND Urology | DX: Z12.5 Encounter for screening for malignant neoplasm of prostate (principal) | CPT/HCPCS: 36415; G0103 ==

== ENCOUNTER 2019-10-31 09:03 | Emergency (ER) | payer MEDICARE, MEDICAID ==
[2019-10-31] MEDS ORDERED: IBUPROFEN 800 MG TABLET PO ONE (09:32)
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
--- NOTE | 2019-10-31 10:11 | RADIOLOGY REPORT (SQ) ---
EXAM DESCRIPTION: TIBIA FIBULA LEFT IMAGES COMPLETED DATE/TIME: 10/31/2019 9:56 am REASON FOR STUDY: wound, pain, erythema COMPARISON: None. NUMBER OF VIEWS: Two views. TECHNIQUE: Two radiographic images acquired of the left tibia and fibula to include the knee and ank le in at least one projection. LIMITATIONS: None. FINDINGS: MINERALIZATION: Normal. BONES: No acute fracture or dislocation. No worrisome bone lesions. No significant osteophytes. SOFT TISSUES: No obvious swelling or foreign body. OTHER: No other significant finding. IMPRESSION: NEGATIVE STUDY OF THE LEFT TIBIA AND FIBULA. NO EXPLANATION FOR PAIN. TECHNICAL DOCUMENTATION: JOB ID: [id number] 2010 [employer]- All Rights Reserved Reading location - IP/workstation name: [email or web address]
[2019-10-31 10:19] LABS: ABSOLUTE BASOPHILS # (AUTO) 0.1 10^3/uL (0.0-0.2); ABSOLUTE EOSINOPHILS # (AUTO) 0.3 10^3/uL (0.0-0.6); ABSOLUTE MONOCYTES (AUTO) 0.4 10^3/uL (0.1-1.4); ABSOLUTE NEUT (AUTO) 3.8 10^3/uL (1.7-8.2); BASOPHILS % (AUTO) 1.5 % (0-2); EOSINOPHILS % (AUTO) 5.1 % (0-6); HEMATOCRIT 45.9 % (37.9-51.0); HEMOGLOBIN 16.5 g/dL (13.5-17.0); LYMPHOCYTES % (AUTO) 30.3 % (13-45); MEAN CORPUSCULAR HEMOGLOBIN 30.6 pg (27.0-33.4); MEAN CORPUSCULAR VOLUME 85 fl (80-97); MONOCYTES % (AUTO) 6.5 % (3-13); PLATELET COUNT 238 10^3/uL (150-450); RED CELL DISTRIBUTION WIDTH 13.7 % (11.5-14.0); SEGMENTED NEUTROPHILS % (AUTO) 56.6 % (42-78); TOTAL CELLS COUNTED % (AUTO) 100 %; WHITE BLOOD COUNT 6.7 10^3/uL (4.0-10.5)
[2019-10-31 10:28] LABS: ALBUMIN 4.6 g/dL (3.5-5.0); ALKALINE PHOSPHATASE 125 U/L (38-126); ANION GAP 10 (5-19); ASPARTATE AMINO TRANSFERASE 23 U/L (17-59); BILIRUBIN,DIRECT 0.1 mg/dL (0.0-0.4); BILIRUBIN,TOTAL 1.3 mg/dL (0.2-1.3); BLOOD UREA NITROGEN 15 mg/dL (7-20); CALCIUM 9.8 mg/dL (8.4-10.2); CARBON DIOXIDE 25 mmol/L (22-30); CHLORIDE 98 mmol/L (98-107); GLUCOSE 232 mg/dL (75-110); POTASSIUM 5.1 mmol/L (3.6-5.0); TOTAL PROTEIN 7.6 g/dL (6.3-8.2)
[2019-10-31 11:12] VITALS: BP 141/79
== END 2019-10-31 11:13 | disposition home or self-care (01) ==
LOC: ER 09:03
DX: L55.1 Sunburn of second degree (principal); E11.9 Type 2 diabetes mellitus without complications; F17.200 Nicotine dependence, unspecified, uncomplicated; Z85.828 Personal history of other malignant neoplasm of skin
CPT/HCPCS: 99285; 36415; 85025; 80053; 73590; A9270

== ENCOUNTER 2020-01-04 07:18 | Emergency (ER) | payer MEDICARE, MEDICAID ==
[2020-01-04] MEDS ORDERED: HYDROMORPHONE HCL INJ/PF 2 MG/ML AMPULE IM ONE (09:14)
[2020-01-04] MEDS ORDERED: ONDANSETRON HCL INJ/PF 4 MG/2 ML SDV IM ONE (09:15)
[2020-01-04 10:02] LABS: APPEARANCE,URINE CLEAR; BILIRUBIN,URINE NEGATIVE (NEGATIVE); COLOR,URINE YELLOW; GLUCOSE, URINE >=500 mg/dL (NEGATIVE); KETONES,URINE NEGATIVE (NEGATIVE); LEUKOCYTE ESTERASE,URINE NEGATIVE (NEGATIVE); NITRITE,URINE NEGATIVE (NEGATIVE); PROTEIN,URINE NEGATIVE (NEGATIVE); URINE SPECIFIC GRAVITY 1.031; UROBILINOGEN,URINE NEGATIVE mg/dL (<2.0)
--- NOTE | 2020-01-04 10:07 | RADIOLOGY REPORT (SQ) ---
EXAM DESCRIPTION: CT LUMBAR SPINE WITHOUT IMAGES COMPLETED DATE/TIME: 01/04/2020 9:43 am REASON FOR STUDY: recurrent back pain/prior surgeries COMPARISON: None. TECHNIQUE: Axial images acquired through the lumbar spine without intravenous contrast. Images revi ewed with lung, soft tissue and bone windows. Reconstructed coronal and sagittal MPR images reviewed . All images stored on PACS. All CT scanners at this facility use dose modulation, iterative reconstruction, and/or weight based d osing when appropriate to reduce radiation dose to as low as reasonably achievable (ALARA). [facility]: Dose Right [facility]: CareDose [facility]: Dose Right [facility]: Teradose 4D [facility]: [employer] RADIATION DOSE: mGy. LIMITATIONS: None. FINDINGS: SEGMENTATION: Normal. No transitional anatomy. ALIGNMENT: Normal. VERTEBRAL BODIES: Status post posterior fusion of the L4/5 level without evidence of hardware fractur e, perihardware lucency or migration. DISCS: Mild circumferential disc bulges/loss of height are seen at all non surgical levels. PEDICLES, TRANSVERSE PROCESSES: No fractures. No dislocation. No acute findings. FACETS, POSTERIOR ELEMENTS: Facet arthropathy is seen at all levels. HARDWARE: Fusion hardware as above. Partially imaged apparent epidural neurostimulator she in leads likely entering the canal at the T10/11 level. VISUALIZED RIBS: No fractures. SOFT TISSUES: No significant or acute finding in adjacent soft tissues. OTHER: No other significant finding. IMPRESSION: Status post L4/5 fusion without evidence of hardware complication. Partially imaged epi dural neurostimulator leads. Multilevel spondylotic changes. No acute findings. TECHNICAL DOCUMENTATION: JOB ID: [id number] Quality ID # [id number]: Final reports with documentation of one or more dose reduction techniques (e.g., Au tomated exposure control, adjustment of the mA and/or kV according to patient size, use of iterative reconstruction technique) 2010 [employer]- All Rights Reserved Reading location - IP/workstation name: [email or web address]
[2020-01-04 10:17] LABS: URINE AMPHETAMINES SCREEN NEGATIVE; URINE BARBITURATES SCREEN NEGATIVE; URINE BENZODIAZEPINES SCREEN NEGATIVE; URINE COCAINE SCREEN NEGATIVE; URINE MARIJUANA (THC) SCREEN NEGATIVE; URINE METHADONE SCREEN NEGATIVE; URINE PHENCYCLIDINE SCREEN NEGATIVE
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
[2020-01-04 11:50] VITALS: BP 133/92
== END 2020-01-04 11:50 | disposition home or self-care (01) ==
LOC: ER 07:18
DX: M54.9 Dorsalgia, unspecified (principal); G89.29 Other chronic pain; E11.9 Type 2 diabetes mellitus without complications; M54.5 Low back pain; Z79.899 Other long term (current) drug therapy; F17.210 Nicotine dependence, cigarettes, uncomplicated; I10 Essential (primary) hypertension; Z79.84 Long term (current) use of oral hypoglycemic drugs
CPT/HCPCS: 99284; 96372; 82962; 81001; 80307; 72131; J1170; J2405

== ENCOUNTER 2020-04-30 15:46 | Emergency (ER) | payer OTHER, MEDICARE, MEDICAID ==
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
[2020-04-30 17:34] LABS: ABSOLUTE BASOPHILS # (AUTO) 0.1 10^3/uL (0.0-0.2); ABSOLUTE EOSINOPHILS # (AUTO) 0.2 10^3/uL (0.0-0.6); ABSOLUTE LYMPHOCYTES (AUTO) 1.8 10^3/uL (0.5-4.7); ABSOLUTE MONOCYTES (AUTO) 0.6 10^3/uL (0.1-1.4); ABSOLUTE NEUT (AUTO) 5.1 10^3/uL (1.7-8.2); EOSINOPHILS % (AUTO) 2.6 % (0-6); HEMATOCRIT 44.2 % (37.9-51.0); HEMOGLOBIN 15.5 g/dL (13.5-17.0); LYMPHOCYTES % (AUTO) 22.6 % (13-45); MEAN CORPUSCULAR HGB CONC 35.1 g/dL (32.0-36.0); MEAN CORPUSCULAR VOLUME 91 fl (80-97); MONOCYTES % (AUTO) 8.1 % (3-13); PLATELET COUNT 223 10^3/uL (150-450); RED BLOOD COUNT 4.85 10^6/uL (4.35-5.55); RED CELL DISTRIBUTION WIDTH 13.8 % (11.5-14.0); SEGMENTED NEUTROPHILS % (AUTO) 65.7 % (42-78); TOTAL CELLS COUNTED % (AUTO) 100 %; WHITE BLOOD COUNT 7.8 10^3/uL (4.0-10.5)
[2020-04-30 17:42] LABS: INTERNATIONAL RATION (INR) 0.89; PROTHROMBIN TIME 12.3 SEC (11.4-15.4)
[2020-04-30 17:43] LABS: PARTIAL THROMBOPLASTIN TIME 27.1 SEC (23.5-35.8)
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
[2020-04-30 18:03] LABS: ALBUMIN 3.6 g/dL (3.5-5.0); ALKALINE PHOSPHATASE 134 U/L (38-126); ANION GAP 7 (5-19); ASPARTATE AMINO TRANSFERASE 20 U/L (17-59); BILIRUBIN,TOTAL 0.4 mg/dL (0.2-1.3); BLOOD UREA NITROGEN 19 mg/dL (7-20); CALCIUM 8.7 mg/dL (8.4-10.2); CARBON DIOXIDE 24 mmol/L (22-30); CHLORIDE 102 mmol/L (98-107); GLUCOSE 223 mg/dL (75-110); POTASSIUM 4.7 mmol/L (3.6-5.0)
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
[2020-04-30] MEDS ORDERED: OXYCODONE-ACETAMINOPHEN 5-325 MG TABLET PO ONE (18:36)
[2020-04-30 19:33] LABS: APPEARANCE,URINE CLEAR; BILIRUBIN,URINE NEGATIVE (NEGATIVE); COLOR,URINE STRAW; GLUCOSE, URINE >=500 mg/dL (NEGATIVE); KETONES,URINE NEGATIVE (NEGATIVE); LEUKOCYTE ESTERASE,URINE NEGATIVE (NEGATIVE); NITRITE,URINE NEGATIVE (NEGATIVE); PROTEIN,URINE NEGATIVE (NEGATIVE); URINE SPECIFIC GRAVITY 1.005; UROBILINOGEN,URINE NEGATIVE mg/dL (<2.0)
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
[2020-04-30] MEDS ORDERED: HYDROCODONE/ACETAMINOPHEN 5-325 MG (6 TAB/ER DISP) PO PRN (20:03)
[2020-04-30 20:23] VITALS: BP 146/95
--- NOTE | 2020-05-01 06:49 | EKG REPORT ---
SEVERITY:- ABNORMAL ECG - SINUS RHYTHM LEFT ANTERIOR FASCICULAR BLOCK : Confirmed by: Jayme Chaney MD 01-May-2020 06:48:41
== END 2020-04-30 20:21 | disposition home or self-care (01) ==
LOC: ER 15:46
DX: S20.212A Contusion of left front wall of thorax, initial encounter (principal); S30.1XXA Contusion of abdominal wall, initial encounter; S30.811A Abrasion of abdominal wall, initial encounter; S80.212A Abrasion, left knee, initial encounter; S80.211A Abrasion, right knee, initial encounter; S50.812A Abrasion of left forearm, initial encounter; S50.811A Abrasion of right forearm, initial encounter; R51.9 Headache, unspecified; V49.40XA Driver injured in collision with unspecified motor vehicles in traffic accident, initial encounter; K63.9 Disease of intestine, unspecified; M47.812 Spondylosis without myelopathy or radiculopathy, cervical region; I10 Essential (primary) hypertension; E11.9 Type 2 diabetes mellitus without complications
CPT/HCPCS: 36415; 70450; 71046; 71260; 72125; 74177; 80053; 81001; 85025; 85610; 85730; 93005; 93010; 99285